=== PATIENT | female | born 1970 | race African-American/Black ===

== ENCOUNTER 2024-05-24 08:20 | Emergency (ER) | payer BC, SELFPAY ==
[2024-05-24 08:24] VITALS: BP 135/96; PULSE 101; RESP 20; TEMP 37; O2SAT 98; BMI 23.7
--- NOTE | 2024-05-24 09:18 | ED_ITS ---
HPI - Neck Pain/Injury General Chief Complaint: Back Pain/Injury Stated Complaint: Neck/back pain Time Seen by Provider: 05/24/24 09:17 Source: patient Mode of arrival: ambulatory Limitations: no limitations History of Present Illness ED Provider: Bin Cárdenas PA-C HPI Narrative: 53 yo female presents to the ER for evaluation of acute onset of left side neck pain and left sided upper back pain that started yesterday and has gotten progressively worse. She reports severe, sharp pain that is worse with any movement of the head and neck. She states the pain radiates down the left arm. No weakness, numbness or tingling. No headaches. No falls or injury. She has been taking ibuprofen with minimal relief. MD complaint: neck pain Onset (ago): day(s) (2) Place: home Radiation: left lateral Severity: moderate Quality: sharp Duration: constant Relieving factors: immobilization Exacerbating factors: movement of extremity and movement of neck Associated symptoms: none Treatments prior to arrival: ibuprofen (last night) Related Data Previous Rx's ?Medication ?Instructions ?Recorded cyclobenzaprine 10 mg tablet 10 mg PO TID PRN muscle spasm #10 05/24/24 tabs lidocaine 5 % topical patch 1 patch topical DAILY #15 ea 05/24/24 Allergies Allergy/AdvReac Type Severity Reaction Status Date / Time aspirin [From PERCODAN] Allergy Severe UNKNOWN Unverified 05/24/24 08:25 oxycodone [From PERCODAN] Allergy Severe UNKNOWN Unverified 05/24/24 08:25 SEASONAL ALLERGIES Allergy Severe UNKNOWN Uncoded 05/24/24 08:25 Review of Systems Review of Systems: Yes all other systems are reviewed and are negative [facility] Social History Social History Advance Directives: No Advance Directives Information Provided: No Physical Exam Vital Signs: Vital Signs: Last Vital Signs Temp 98.6 F 05/24/24 08:24 Pulse 101 H 05/24/24 08:24 Resp 20 05/24/24 08:24 BP 135/96 H 05/24/24 08:24 Pulse Ox 98 05/24/24 08:24 O2 Del Method Room Air 05/24/24 08:24 BMI result Body Mass Index 23.7 Appearance: Alert. Oriented X3. appears uncomfortable Head: normocephalic, atraumatic. Eyes: Pupils equal, round and reactive to light. ENT: Pharynx normal. No tonsillar swelling or exudate. Neck: appears stiff. soft tissue tenderness to the left lateral neck with palpable spasm into the upper trapezius and medial to the scapula CVS: Normal heart rate and rhythm. Pulses normal. Respiratory: No respiratory distress. Breath sounds normal. Skin: Skin warm and dry. Normal skin color. Normal skin turgor. No rashes. Extremities: No lower extremity edema. No joint swelling. pain with ROM of the LUE Neuro/psych: Oriented X 3. No motor deficit. No sensory deficit. CN II-XII intact. Normal speech and cognition. Medical Decision Making Medical Decision Making MDM Narrative: 53 yo female presenting with left sided neck pain and stiffness that started yesterday. no meningeal signs. she has palpable muscle spasm on exam. no neuro deficits. no fevers will treat for muscle spasm. other supportive care measures discussed. stable for d/c home with outpatient follow up Differential Diagnosis Differential Diagnoses: The differential diagnosis associated with the presentation includes muscle strain, muscle spasm, torticollis, myositis, low suspicion for dissection or meningitis Independent Historian Clinical information obtained from an independent historian. History obtained from or confirmed by: Friend Tests considered The following testing was considered but not selected: considered cervical spine xr Prescription Management I considered prescription management with: Pain Medication Critical Care Time Critical Care Time Critical Care Time: No Discharge Plan Discharge Clinical Impression: Cervical muscle strain Qualifiers: Encounter type: initial encounter Qualified Code(s): S16.1XXA - Strain of muscle, fascia and tendon at neck level, initial encounter Patient Disposition: Home, Self-Care Instructions: Cervical Strain (DC) Additional Instructions: Your pain is due to muscle spasm. Use heating pad on low-medium heat several times per day for 20 minutes at a time for the next 48 hours. Take medications as prescribed to help with pain and discomfort. Continue ibuprofen 600 mg every 6-8 hours around the clock. take it with food Work on gentle range of motion of your neck and gentle massge/ Follow up with your Primary Care Doctor this week. If you develop new or worsening symptoms call 911 or come back to the ER for further evaluation. Prescriptions: New cyclobenzaprine 10 mg tablet 10 mg PO TID PRN (Reason: muscle spasm) Qty: 10 0RF lidocaine 5 % adhesive patch,medicated 1 patch topical DAILY Qty: 15 0RF Rx Instructions: leave on most painful area for up to 12 hrs Print Language: Turkish
[2024-05-24] MEDS: Acetaminophen 325 MG TABLET 975 MG PO (09:58)
[2024-05-24] MEDS: Lidocaine 4 % Patch ADH..PATCH 1 PATCH TRANSDERMA (09:59)
[2024-05-24] MEDS: Ketorolac Tromethamine 30 MG/ML VIAL IM (09:59)
[2024-05-24 10:09] VITALS: BP 135/96; PULSE 101; RESP 20; TEMP 37; O2SAT 98
== END 2024-05-24 10:10 | disposition home or self-care (01) ==
PROVIDERS: Emergency Provider Student in an Organized Health Care Education/Training Program
DX: S16.1XXA Strain of muscle, fascia and tendon at neck level, initial encounter (principal); M54.2 Cervicalgia; X58.XXXA Exposure to other specified factors, initial encounter; Y93.89 Activity, other specified; Y92.89 Other specified places as the place of occurrence of the external cause; Y99.8 Other external cause status
CPT/HCPCS: 96372; 99283; 99284; J1885